=== PATIENT | male | born 1950 | race Caucasian/White ===

== ENCOUNTER → 2018-12-23 | Outpatient (CLI) | payer OTHER ==
[~2018-12-23] VITALS: Ht 185.4 cm; Wt 106.6 kg
[~2018-12-23] MED LIST: ACTOS 30 MG TAB30 M1 PO; AMLODIPINE BESY10 MG PO; ASPIR 8181 MG PO; ATENOLOL 50MG T50 M1 PO; ATORVASTATIN CA40 MG PO; COUMADIN 5 MG TA5 M1 PO; GLUCOPHAGE1000 MG PO; GLYBURIDE 5 MG T5 M1 PO; HYDROCHLOROTHIA25 M2 PO; HYDROCODONE-AP1 EAC6 PO; KLOR-CON 1010 MEQ PO; LANTUS100 UNIT/M SUBQ; LEVOTHYROXIN0.075 MG PO; LISINOPRIL20 MG PO; METFORMIN HCL500 MG PO; MUCINEX DM TABL1 TA1 PO; NORVASC10 MG PO; NOVOLOG100 UNIT/1 SUBQ; PRADAXA150 MG PO; PRAVACHOL20 MG PO; PRAVACHOL40 MG PO; SORINE 80 MG TA80 M1 PO
--- NOTE | 2018-12-23 16:39 | P ---
[facility] [place] [address] PROCEDURE REPORT Name: LUNA AGUIRRE Room #: REG [facility]#: [id number] Admission: 12/23/18 ������������������ Attend Phys: Skyler Olivo MD Discharge: ������������������ Date of : 48 Report #: [id number] THIS REPORT FOR: //name// CC: Skyler Salgado MD DATE OF SERVICE: 12/23/2018 BRIEF HISTORY: The patient is a 68-year-old male for his first average risk screening colonoscopy. PREOPERATIVE DIAGNOSIS: Average risk screening colonoscopy. POSTOPERATIVE DIAGNOSES: 1. Multiple colon polyps. 2. Ramirez diverticulosis coli. 3. Moderate external hemorrhoids. MEDICATIONS: Deep sedation with propofol per anesthesia. SPECIMENS: 1. Polyp, cecum. 2. Polyp, hepatic flexure. 3. Polyp, splenic flexure. 4. Polyps x 3 at 70 cm. ESTIMATED BLOOD LOSS: 3 mL. PROCEDURE: Colonoscopy to cecum and terminal ileum with snare polypectomy and biopsy. FINDINGS: Prior to propofol sedation, procedure of colonoscopy discussed with the patient as well as potential risks and its complications. He indicates, he understands and desires to proceed. PROCEDURE IN DETAIL: The patient was placed in left lateral decubitus position, digital examination was completed, which revealed no abnormalities. Subsequently, the Olympus video colonoscope was introduced in the rectum, advanced under direct vision to the cecum. Done with minimal difficulty. The cecum was identified by the ileocecal valve and the appendiceal orifice. I was able to visualize the distal segment of the terminal ileum, which was inspected and noted to be unremarkable. At that point, the scope was slowly withdrawn and careful circumferential views obtained. Upon slow withdrawal of the scope, the mucosa was inspected. The prep was good. The mucosa was within normal limits, normal vascular pattern, normal light reflex. As we withdrew the scope, a 4 mm [facility] [address] [place] [address] PROCEDURE REPORT Name: LUNA AGUIRRE Room #: REG [facility]#: [id number] Admission: 12/23/18 ������������������ Attend Phys: Skyler Olivo MD Discharge: ������������������ Date of : 48 Report #: [id number] flat polyp was seen in the cecum, was removed with multiple biopsy. Scope was further withdrawn diminutive polyp was seen at the hepatic flexure. At the splenic flexure, a flat 6-7 mm polyp was seen and removed by hot snare polypectomy. A few fragments remained were cleaned with biopsy forceps. The majority of the polyp was suctioned, but it appeared that we only recovered a small amount of the polyp and not all of it may have been recovered. It did have a benign appearance. The scope was further withdrawn and at 70 cm, 2 diminutive polyps seen and removed with biopsy forceps. A 5 mm flat polyp was seen and removed by cold snare polypectomy and the site was cleaned up with biopsy forceps. Scope was further withdrawn and other than diverticula throughout the colon, no additional abnormalities were seen. The scope was withdrawn into the rectum and he was noted to have hemorrhoids, which were primarily external hemorrhoids in the canal. They were noted to be to a moderate degree. There was no stigmata of bleeding. The scope was withdrawn. The patient tolerated the procedure well. CONDITION OF THE PATIENT UPON DISCHARGE: Following procedure, the patient drowsy, aroused, conversant and will be discharged home when fully ambulatory. INSTRUCTIONS TO THE PATIENT AND FAMILY AT THE TIME OF DISCHARGE: A total of 6 polyps were identified and removed today. We will follow up on path and make further recommendations. If 3 or more polyps are adenomas, he should return in 3 years; if only 1 or 2 adenomas, then 5 years; if none are adenomas, then 10 years would be indicated. He does have diverticular disease involving essentially the entire colon from the sigmoid colon, the diverticular moderate in size and there were multiple throughout the colon. There was no endoscopic evidence of diverticulitis, suggest high fiber diet. The patient tolerated has had a history of hemorrhoids, but not bleeding. We will treat him with hydrocortisone cream. Suggest a fiber product daily, MiraLax is a consideration for hard stools. If he continues to have difficulty, he should return to see me in followup in the office. Otherwise, he will follow up with Dr. Supa Salgado. ��������������������������������������������� <ELECTRONICALLY SIGNED> ���������������������������������������� By: Skyler Olivo MD ��������������������������������������������� 12/23/18 [id number] [id number] Skyler Olivo MD /nt
== END | disposition home or self-care (01) ==
LOC: GI 07:13
DX: Z12.11 Encounter for screening for malignant neoplasm of colon (principal); D12.3 Benign neoplasm of transverse colon; D12.0 Benign neoplasm of cecum; D12.4 Benign neoplasm of descending colon; K63.5 Polyp of colon; K64.4 Residual hemorrhoidal skin tags; K57.30 Diverticulosis of large intestine without perforation or abscess without bleeding; I10 Essential (primary) hypertension; I25.2 Old myocardial infarction; E03.9 Hypothyroidism, unspecified; E78.00 Pure hypercholesterolemia, unspecified; E11.9 Type 2 diabetes mellitus without complications; I48.91 Unspecified atrial fibrillation; Z87.891 Personal history of nicotine dependence; Z79.899 Other long term (current) drug therapy; Z98.890 Other specified postprocedural states; Z95.0 Presence of cardiac pacemaker; Z95.1 Presence of aortocoronary bypass graft; Z98.41 Cataract extraction status, right eye; Z87.442 Personal history of urinary calculi; Z98.42 Cataract extraction status, left eye; Z79.01 Long term (current) use of anticoagulants
CPT/HCPCS: 62110; 62900

== ENCOUNTER → 2019-07-14 | Outpatient (CLI) | payer OTHER ==
[~2019-07-14] MED LIST changes: +COUMADIN 2.5MG2.5 M1 PO; +GLYBURIDE 2.52.5 MG PO; +PIOGLITAZONE15 MG PO; +SOTALOL 120 MG120 MG PO; +SYNTHROID75 MCG PO
== END ==
LOC: SJCVC 13:06
DX: I25.10 Atherosclerotic heart disease of native coronary artery without angina pectoris (principal); R94.31 Abnormal electrocardiogram [ECG] [EKG]; I25.5 Ischemic cardiomyopathy; I48.0 Paroxysmal atrial fibrillation; I47.2 Ventricular tachycardia; I10 Essential (primary) hypertension; E11.9 Type 2 diabetes mellitus without complications; E78.5 Hyperlipidemia, unspecified; E78.00 Pure hypercholesterolemia, unspecified; Z95.0 Presence of cardiac pacemaker; Z79.01 Long term (current) use of anticoagulants; Z79.899 Other long term (current) drug therapy; Z87.891 Personal history of nicotine dependence

== ENCOUNTER → 2020-01-15 | Outpatient (CLI) | payer OTHER | LOC: SJCVC 09:54 | PROVIDERS: ATTEND Internal Medicine | DX: I25.10 Atherosclerotic heart disease of native coronary artery without angina pectoris (principal); R94.31 Abnormal electrocardiogram [ECG] [EKG]; I25.5 Ischemic cardiomyopathy; I47.1 Supraventricular tachycardia; I48.0 Paroxysmal atrial fibrillation; I10 Essential (primary) hypertension; E78.5 Hyperlipidemia, unspecified; E11.9 Type 2 diabetes mellitus without complications; Z95.0 Presence of cardiac pacemaker; Z79.899 Other long term (current) drug therapy; Z87.891 Personal history of nicotine dependence ==

== ENCOUNTER → 2020-05-09 | Outpatient (CLI) | payer OTHER | LOC: SJCVC 12:47 | PROVIDERS: ATTEND Internal Medicine | DX: Z45.02 Encounter for adjustment and management of automatic implantable cardiac defibrillator (principal); R94.31 Abnormal electrocardiogram [ECG] [EKG]; I25.5 Ischemic cardiomyopathy; I25.10 Atherosclerotic heart disease of native coronary artery without angina pectoris; I47.2 Ventricular tachycardia; I48.0 Paroxysmal atrial fibrillation; I10 Essential (primary) hypertension; E78.5 Hyperlipidemia, unspecified; E11.9 Type 2 diabetes mellitus without complications; I65.23 Occlusion and stenosis of bilateral carotid arteries; Z95.1 Presence of aortocoronary bypass graft; Z95.810 Presence of automatic (implantable) cardiac defibrillator; Z79.899 Other long term (current) drug therapy; Z87.891 Personal history of nicotine dependence ==

== ENCOUNTER → 2020-11-11 | Outpatient (CLI) | payer OTHER | LOC: SJCVCIMAG 08:44 | PROVIDERS: ATTEND Internal Medicine | DX: I65.23 Occlusion and stenosis of bilateral carotid arteries (principal); I34.0 Nonrheumatic mitral (valve) insufficiency; R94.31 Abnormal electrocardiogram [ECG] [EKG]; I77.819 Aortic ectasia, unspecified site; I11.9 Hypertensive heart disease without heart failure; I25.10 Atherosclerotic heart disease of native coronary artery without angina pectoris; I25.5 Ischemic cardiomyopathy; I47.2 Ventricular tachycardia; I48.0 Paroxysmal atrial fibrillation; E78.5 Hyperlipidemia, unspecified; E11.9 Type 2 diabetes mellitus without complications; E78.00 Pure hypercholesterolemia, unspecified; Z95.1 Presence of aortocoronary bypass graft; Z95.0 Presence of cardiac pacemaker; Z79.01 Long term (current) use of anticoagulants; Z79.899 Other long term (current) drug therapy; Z87.891 Personal history of nicotine dependence; Z82.49 Family history of ischemic heart disease and other diseases of the circulatory system ==

== ENCOUNTER → 2021-05-08 | Outpatient (CLI) | payer OTHER | LOC: SJCVC 13:38 | PROVIDERS: ATTEND Internal Medicine Cardiovascular Disease | DX: I25.5 Ischemic cardiomyopathy (principal); I25.10 Atherosclerotic heart disease of native coronary artery without angina pectoris; I47.2 Ventricular tachycardia; I48.0 Paroxysmal atrial fibrillation; I10 Essential (primary) hypertension; E78.5 Hyperlipidemia, unspecified; E11.9 Type 2 diabetes mellitus without complications; I50.82 Biventricular heart failure; C09.9 Malignant neoplasm of tonsil, unspecified; Z95.810 Presence of automatic (implantable) cardiac defibrillator; Z95.2 Presence of prosthetic heart valve; Z79.01 Long term (current) use of anticoagulants; Z79.899 Other long term (current) drug therapy; Z87.891 Personal history of nicotine dependence ==

== ENCOUNTER → 2021-05-14 | Outpatient (CLI) | payer OTHER | LOC: SJCVCIMAG 08:11 | PROVIDERS: ATTEND Internal Medicine | DX: I48.0 Paroxysmal atrial fibrillation (principal); I25.2 Old myocardial infarction; I25.10 Atherosclerotic heart disease of native coronary artery without angina pectoris; I25.5 Ischemic cardiomyopathy; I47.2 Ventricular tachycardia; I10 Essential (primary) hypertension; E78.5 Hyperlipidemia, unspecified; E11.9 Type 2 diabetes mellitus without complications; I65.23 Occlusion and stenosis of bilateral carotid arteries; Z82.49 Family history of ischemic heart disease and other diseases of the circulatory system; Z95.0 Presence of cardiac pacemaker; Z79.899 Other long term (current) drug therapy; Z87.891 Personal history of nicotine dependence ==